=== PATIENT | male | born 1985 | race American Indian/Alaskan Native ===

== ENCOUNTER 2019-02-23 13:59 | Inpatient (IN) | payer OTHER ==
[2019-02-23] MEDS ORDERED: NACL 0.9% 500 ML 500 ML IV ONE (14:17)
[2019-02-23 15:17] LABS: Hematocrit 48.6 % (35.5-45.6); Hemoglobin 15.9 gm/dl (11.8-15.2); Mean Corpuscular HGB Conc 33 % (32-34); Mean Corpuscular Volume 85 fl (84-94); Platelet Count 193 K/mm3 (140-440); Red Blood Count 5.74 M/mm3 (3.65-5.03)
[2019-02-23 15:18] LABS: INR 0.98 (0.87-1.13)
--- NOTE | 2019-02-23 15:23 | XRay Report ---
CHEST 1 VIEW INDICATION / CLINICAL INFORMATION: possible Sepsis. COMPARISON: None available. FINDINGS: SUPPORT DEVICES: None. HEART / MEDIASTINUM: No significant abnormality. LUNGS / PLEURA: No significant pulmonary or pleural abnormality. No pneumothorax. ADDITIONAL FINDINGS: No significant additional findings. IMPRESSION: No acute pulmonary or pleural abnormality Signer Name: Prabhakar Carlin MD FACR Signed: 02/23/2019 3:18 PM Workstation Name: [id number]
[2019-02-23] MEDS ORDERED: ZOFRAN IV ONE (15:36)
[2019-02-23] MEDS ORDERED: NACL 0.9% 1000 ML 1,000 ML IV ONE ×4 (15:36→21:52)
--- NOTE | 2019-02-23 15:37 | Emergency Department Report ---
ED Abdominal Pain HPI - General Chief Complaint: Abdominal Pain Stated Complaint: POSS STOMACH VIRUS X 4DAYS Time Seen by Provider: 02/23/19 15:21 Source: patient Mode of arrival: Ambulatory Limitations: No Limitations - History of Present Illness Initial Comments: 33-year-old -[place] male patient with history of HIV presents today with complaints of abdominal pain and diarrhea 4 days. He denies any upper respiratory symptoms including cough, congestion, shortness of breath, or chest pain. He denies any fever. Patient states he is having greater than 10 watery bowel movements a day. Denies any hematochezia, black tarry stools, or urinary symptoms. Patient states symptoms began after taking first dose of his new antivirals for his HIV-Biktarvy. He states he has not taking any further antiviral since then. He reports one episode of vomiting food contents. Pain is generalized and worse with bowel movements. She denies any previous history of abdominal surgeries, heavy alcohol drinking, or chronic GI issues. Patient states his previous infectious disease doctor was in [place] and patient is unaware of his current CD4 count or viral load. -: Sudden Location: diffuse Radiation: none Migration to: no migration Severity: severe Severity scale (0 -10): 8 Quality: cramping, aching Consistency: constant Improves With: nothing Worsens With: bowel movement Context: sick contacts (roommate with similar less severe symptoms, now resolved) Associated Symptoms: nausea, vomiting, diarrhea, chills. denies: fever, dysuria, hematemesis, hematochezia, hematuria, syncope - Related Data Home Medications Medication Instructions Recorded Confirmed Last Taken Bictegrav/Emtricit/Tenofov Ala 1 each PO QDAY 02/23/19 02/23/19 02/19/19 [Biktarvy 50-200-25 mg (Nf)] Allergies Allergy/AdvReac Type Severity Reaction Status Date / Time No Known Allergies Allergy Unverified 02/23/19 14:01 ED Review of Systems ROS: Stated complaint: POSS STOMACH VIRUS X 4DAYS Other details as noted in HPI Comment: All other systems reviewed and negative Constitutional: see HPI, malaise. denies: diaphoresis, fever, weakness Respiratory: denies: cough, shortness of breath, wheezing Cardiovascular: denies: chest pain, palpitations, dyspnea on exertion, syncope Gastrointestinal: abdominal pain, nausea, vomiting, diarrhea. denies: hematemesis, melena Neurological: denies: headache, weakness, paresthesias Hematological/Lymphatic: denies: easy bleeding ED Past Medical Hx - Past Medical History Previous Medical History?: Yes Hx HIV: Yes - Surgical History Past Surgical History?: No - Social History Smoking Status: Current Every Day Smoker Substance Use Type: Marijuana - Medications Home Medications: Home Medications Medication Instructions Recorded Confirmed Last Taken Type Bictegrav/Emtricit/Tenofov Ala 1 each PO QDAY 02/23/19 02/23/19 02/19/19 History [Biktarvy 50-200-25 mg (Nf)] ED Physical Exam - General Limitations: No Limitations General appearance: alert, in no apparent distress - Head Head exam: Present: atraumatic - Eye Eye exam: Present: normal appearance - ENT ENT exam: Present: mucous membranes moist - Neck Neck exam: Present: normal inspection - Respiratory Respiratory exam: Present: normal lung sounds bilaterally. Absent: respiratory distress - Cardiovascular Cardiovascular Exam: Present: normal rhythm, tachycardia, normal heart sounds - GI/Abdominal GI/Abdominal exam: Present: soft, tenderness (generalized, worse in LLQ ), normal bowel sounds. Absent: distended, mass - Extremities Exam Extremities exam: Present: normal inspection - Neurological Exam Neurological exam: Present: alert, oriented X3 - Psychiatric Psychiatric exam: Present: normal affect, normal mood - Skin Skin exam: Present: warm, dry, intact, normal color. Absent: rash ED Course Vital Signs 02/23/19 02/23/19 02/23/19 14:09 16:00 16:25 Temperature 97.5 F L Pulse Rate 138 H 118 H Respiratory 18 18 18 Rate Blood Pressure 114/77 Blood Pressure 105/63 [Left] O2 Sat by Pulse 100 97 97 Oximetry 02/23/19 02/23/19 02/23/19 17:01 17:04 17:16 Temperature 98 F Pulse Rate 119 H 112 H 121 H Respiratory 14 16 28 H Rate Blood Pressure 112/80 112/80 Blood Pressure 112/80 [Left] O2 Sat by Pulse 100 100 Oximetry 02/23/19 02/23/19 02/23/19 17:30 19:00 19:02 Temperature 99.7 F H Pulse Rate 122 H 121 H 116 H Respiratory 18 14 20 Rate Blood Pressure 112/80 112/80 Blood Pressure 107/73 [Left] O2 Sat by Pulse 67 L 100 Oximetry 02/23/19 02/23/19 02/23/19 19:16 19:30 19:46 Temperature Pulse Rate 117 H 122 H 128 H Respiratory 22 21 22 Rate Blood Pressure 107/73 107/73 119/85 Blood Pressure [Left] O2 Sat by Pulse Oximetry 02/23/19 02/23/19 02/23/19 20:00 20:16 20:30 Temperature Pulse Rate 121 H 125 H 143 H Respiratory 16 24 32 H Rate Blood Pressure 119/85 111/78 111/78 Blood Pressure [Left] O2 Sat by Pulse 100 100 Oximetry 02/23/19 02/23/19 02/23/19 20:46 21:01 21:15 Temperature Pulse Rate 130 H 121 H Respiratory 26 H 39 H Rate Blood Pressure 124/82 112/80 124/82 Blood Pressure [Left] O2 Sat by Pulse 99 100 100 Oximetry 02/23/19 02/23/19 02/23/19 21:29 21:31 21:41 Temperature 98.1 F Pulse Rate 111 H 129 H 123 H Respiratory 20 33 H 17 Rate Blood Pressure 121/79 121/79 Blood Pressure [Left] O2 Sat by Pulse 97 98 Oximetry 02/23/19 02/23/19 02/23/19 21:51 22:01 22:11 Temperature Pulse Rate 131 H 130 H 130 H Respiratory 29 H 24 24 Rate Blood Pressure 114/79 96/68 96/68 Blood Pressure [Left] O2 Sat by Pulse 100 100 100 Oximetry 02/23/19 02/23/19 02/23/19 22:21 22:30 22:41 Temperature Pulse Rate 131 H 129 H 130 H Respiratory 22 24 22 Rate Blood Pressure 96/68 94/59 94/59 Blood Pressure [Left] O2 Sat by Pulse 100 100 100 Oximetry 02/23/19 02/23/19 02/23/19 22:51 23:01 23:10 Temperature Pulse Rate 146 H Respiratory 26 H Rate Blood Pressure 94/59 94/59 94/59 Blood Pressure [Left] O2 Sat by Pulse 100 88 100 Oximetry - Reevaluation(s) Reevaluation #1: 02/23/19 15:42 Patient presents with greater than 10 watery bowel movements daily for 4 days and abdominal pain Heart rate is at 1:30suspect dehydration Sepsis protocol initiatedinitial lactic acid 4.8 Reevaluation #2: 02/23/19 17:09 CT abdomen still pending. Patient remained afebrile. Discussed patient with Dr. Murphy, infectious disease. He does not recommend antibiotics at this time. As recommend stool testing for cryptosporidium antigen and C. difficile. Dr. Murphy states he will consult on patient in the morning. ED Medical Decision Making - Lab Data Result diagrams: 02/24/19 06:42 02/25/19 05:02 Lab Results 02/23/19 02/23/19 02/23/19 Range/Units 14:24 14:24 14:24 WBC 10.6 (4.5-11.0) K/mm3 RBC 5.74 H (3.65-5.03) M/mm3 Hgb 15.9 H (11.8-15.2) gm/dl Hct 48.6 H (35.5-45.6) % MCV 85 (84-94) fl MCH 28 (28-32) pg MCHC 33 (32-34) % RDW 15.0 (13.2-15.2) % Plt Count 193 (140-440) K/mm3 Add Manual Diff Complete Total Counted 100 Seg Neuts % (Manual) 63.0 (40.0-70.0) % Band Neutrophils % 0 % Lymphocytes % (Manual) 25.0 (13.4-35.0) % Reactive Lymphs % (Man) 0 % Monocytes % (Manual) 12.0 H (0.0-7.3) % Eosinophils % (Manual) 0 (0.0-4.3) % Basophils % (Manual) 0 (0.0-1.8) % Metamyelocytes % 0 % Myelocytes % 0 % Promyelocytes % 0 % Blast Cells % 0 % Nucleated RBC % Not Reportable Seg Neutrophils # Man 6.7 (1.8-7.7) K/mm3 Band Neutrophils # 0.0 K/mm3 Lymphocytes # (Manual) 2.7 (1.2-5.4) K/mm3 Abs React Lymphs (Man) 0.0 K/mm3 Monocytes # (Manual) 1.3 H (0.0-0.8) K/mm3 Eosinophils # (Manual) 0.0 (0.0-0.4) K/mm3 Basophils # (Manual) 0.0 (0.0-0.1) K/mm3 Metamyelocytes # 0.0 K/mm3 Myelocytes # 0.0 K/mm3 Promyelocytes # 0.0 K/mm3 Blast Cells # 0.0 K/mm3 WBC Morphology Not Reportable Hypersegmented Neuts Not Reportable Hyposegmented Neuts Not Reportable Hypogranular Neuts Not Reportable Smudge Cells Not Reportable Toxic Granulation Not Reportable Toxic Vacuolation Not Reportable Dohle Bodies Not Reportable Pelger-Huet Anomaly Not Reportable Gavino Rods Not Reportable Platelet Estimate Consistent w auto Clumped Platelets Not Reportable Plt Clumps, EDTA Not Reportable Large Platelets Not Reportable Giant Platelets Not Reportable Platelet Satelliting Not Reportable Plt Morphology Comment Not Reportable RBC Morphology Not Reportable Dimorphic RBCs Not Reportable Polychromasia Not Reportable Hypochromasia Not Reportable Poikilocytosis 1+ Anisocytosis 1+ Microcytosis Not Reportable Macrocytosis Not Reportable Spherocytes Not Reportable Pappenheimer Bodies Not Reportable Sickle Cells Not Reportable Target Cells Few Tear Drop Cells Not Reportable Ovalocytes Rare Helmet Cells Not Reportable Bu[place] Bodies Not Reportable [place] Rings Not Reportable Mike Cells Not Reportable Bite Cells Not Reportable Crenated Cell Not Reportable Elliptocytes Not Reportable Acanthocytes (Spur) Not Reportable Rouleaux Not Reportable Hemoglobin C Crystals Not Reportable Schistocytes Not Reportable Malaria parasites Not Reportable Erasto Bodies Not Reportable Hem Pathologist Commnt No PT 12.7 (12.2-14.9) Sec. INR 0.98 (0.87-1.13) VBG pH (7.320-7.420) Sodium 129 L (137-145) mmol/L Potassium 4.6 (3.6-5.0) mmol/L Chloride 92.0 L (98-107) mmol/L Carbon Dioxide 20 L (22-30) mmol/L Anion Gap 22 mmol/L BUN 47 H (9-20) mg/dL Creatinine 1.7 H (0.8-1.5) mg/dL Estimated GFR 56 ml/min BUN/Creatinine Ratio 28 % Glucose 113 H (75-100) mg/dL Lactic Acid (0.7-2.0) mmol/L Calcium 8.5 (8.4-10.2) mg/dL Magnesium (1.7-2.3) mg/dL Total Bilirubin 1.00 (0.1-1.2) mg/dL AST 52 H (5-40) units/L ALT 17 (7-56) units/L Alkaline Phosphatase 42 (35-129) units/L Total Creatine Kinase (55-170) units/L Total Protein 7.5 (6.3-8.2) g/dL Albumin 3.2 L (3.9-5) g/dL Albumin/Globulin Ratio 0.7 % Lipase (13-60) units/L C. difficile Tox (PCR) (Negative) Influenza A (Rapid) (Negative) Influenza B (Rapid) (Negative) 02/23/19 02/23/19 02/23/19 Range/Units 14:24 14:24 16:16 WBC (4.5-11.0) K/mm3 RBC (3.65-5.03) M/mm3 Hgb (11.8-15.2) gm/dl Hct (35.5-45.6) % MCV (84-94) fl MCH (28-32) pg MCHC (32-34) % RDW (13.2-15.2) % Plt Count (140-440) K/mm3 Add Manual Diff Total Counted Seg Neuts % (Manual) (40.0-70.0) % Band Neutrophils % % Lymphocytes % (Manual) (13.4-35.0) % Reactive Lymphs % (Man) % Monocytes % (Manual) (0.0-7.3) % Eosinophils % (Manual) (0.0-4.3) % Basophils % (Manual) (0.0-1.8) % Metamyelocytes % % Myelocytes % % Promyelocytes % % Blast Cells % % Nucleated RBC % Seg Neutrophils # Man (1.8-7.7) K/mm3 Band Neutrophils # K/mm3 Lymphocytes # (Manual) (1.2-5.4) K/mm3 Abs React Lymphs (Man) K/mm3 Monocytes # (Manual) (0.0-0.8) K/mm3 Eosinophils # (Manual) (0.0-0.4) K/mm3 Basophils # (Manual) (0.0-0.1) K/mm3 Metamyelocytes # K/mm3 Myelocytes # K/mm3 Promyelocytes # K/mm3 Blast Cells # K/mm3 WBC Morphology Hypersegmented Neuts Hyposegmented Neuts Hypogranular Neuts Smudge Cells Toxic Granulation Toxic Vacuolation Dohle Bodies Pelger-Huet Anomaly Gavino Rods Platelet Estimate Clumped Platelets Plt Clumps, EDTA Large Platelets Giant Platelets Platelet Satelliting Plt Morphology Comment RBC Morphology Dimorphic RBCs Polychromasia Hypochromasia Poikilocytosis Anisocytosis Microcytosis Macrocytosis Spherocytes Pappenheimer Bodies Sickle Cells Target Cells Tear Drop Cells Ovalocytes Helmet Cells [place] Bodies [place] Rings Mike Cells Bite Cells Crenated Cell Elliptocytes Acanthocytes (Spur) Rouleaux Hemoglobin C Crystals Schistocytes Malaria parasites Erasto Bodies Hem Pathologist Commnt PT (12.2-14.9) Sec. INR (0.87-1.13) VBG pH 7.383 (7.320-7.420) Sodium (137-145) mmol/L Potassium (3.6-5.0) mmol/L Chloride (98-107) mmol/L Carbon Dioxide (22-30) mmol/L Anion Gap mmol/L BUN (9-20) mg/dL Creatinine (0.8-1.5) mg/dL Estimated GFR ml/min BUN/Creatinine Ratio % Glucose (75-100) mg/dL Lactic Acid 4.80 H* (0.7-2.0) mmol/L Calcium (8.4-10.2) mg/dL Magnesium (1.7-2.3) mg/dL Total Bilirubin (0.1-1.2) mg/dL AST (5-40) units/L ALT (7-56) units/L Alkaline Phosphatase (35-129) units/L Total Creatine Kinase (55-170) units/L Total Protein (6.3-8.2) g/dL Albumin (3.9-5) g/dL Albumin/Globulin Ratio % Lipase (13-60) units/L C. difficile Tox (PCR) (Negative) Influenza A (Rapid) Negative (Negative) Influenza B (Rapid) Negative (Negative) 02/23/19 02/23/19 02/23/19 Range/Units 16:21 16:21 16:34 WBC (4.5-11.0) K/mm3 RBC (3.65-5.03) M/mm3 Hgb (11.8-15.2) gm/dl Hct (35.5-45.6) % MCV (84-94) fl MCH (28-32) pg MCHC (32-34) % RDW (13.2-15.2) % Plt Count (140-440) K/mm3 Add Manual Diff Total Counted Seg Neuts % (Manual) (40.0-70.0) % Band Neutrophils % % Lymphocytes % (Manual) (13.4-35.0) % Reactive Lymphs % (Man) % Monocytes % (Manual) (0.0-7.3) % Eosinophils % (Manual) (0.0-4.3) % Basophils % (Manual) (0.0-1.8) % Metamyelocytes % % Myelocytes % % Promyelocytes % % Blast Cells % % Nucleated RBC % Seg Neutrophils # Man (1.8-7.7) K/mm3 Band Neutrophils # K/mm3 Lymphocytes # (Manual) (1.2-5.4) K/mm3 Abs React Lymphs (Man) K/mm3 Monocytes # (Manual) (0.0-0.8) K/mm3 Eosinophils # (Manual) (0.0-0.4) K/mm3 Basophils # (Manual) (0.0-0.1) K/mm3 Metamyelocytes # K/mm3 Myelocytes # K/mm3 Promyelocytes # K/mm3 Blast Cells # K/mm3 WBC Morphology Hypersegmented Neuts Hyposegmented Neuts Hypogranular Neuts Smudge Cells Toxic Granulation Toxic Vacuolation Dohle Bodies Pelger-Huet Anomaly Gavino Rods Platelet Estimate Clumped Platelets Plt Clumps, EDTA Large Platelets Giant Platelets Platelet Satelliting Plt Morphology Comment RBC Morphology Dimorphic RBCs Polychromasia Hypochromasia Poikilocytosis Anisocytosis Microcytosis Macrocytosis Spherocytes Pappenheimer Bodies Sickle Cells Target Cells Tear Drop Cells Ovalocytes Helmet Cells Bueno-[place] Bodies [place] Rings [place] Cells Bite Cells Crenated Cell Elliptocytes Acanthocytes (Spur) Rouleaux Hemoglobin C Crystals Schistocytes Malaria parasites Erasto Bodies Hem Pathologist Commnt PT (12.2-14.9) Sec. INR (0.87-1.13) VBG pH (7.320-7.420) Sodium (137-145) mmol/L Potassium (3.6-5.0) mmol/L Chloride (98-107) mmol/L Carbon Dioxide (22-30) mmol/L Anion Gap mmol/L BUN (9-20) mg/dL Creatinine (0.8-1.5) mg/dL Estimated GFR ml/min BUN/Creatinine Ratio % Glucose (75-100) mg/dL Lactic Acid 4.30 H* (0.7-2.0) mmol/L Calcium (8.4-10.2) mg/dL Magnesium 1.80 (1.7-2.3) mg/dL Total Bilirubin (0.1-1.2) mg/dL AST (5-40) units/L ALT (7-56) units/L Alkaline Phosphatase (35-129) units/L Total Creatine Kinase 191 H (55-170) units/L Total Protein (6.3-8.2) g/dL Albumin (3.9-5) g/dL Albumin/Globulin Ratio % Lipase 7 L (13-60) units/L C. difficile Tox (PCR) (Negative) Influenza A (Rapid) (Negative) Influenza B (Rapid) (Negative) 02/23/19 02/23/19 02/23/19 Range/Units 16:45 17:22 19:55 WBC (4.5-11.0) K/mm3 RBC (3.65-5.03) M/mm3 Hgb (11.8-15.2) gm/dl Hct (35.5-45.6) % MCV (84-94) fl MCH (28-32) pg MCHC (32-34) % RDW (13.2-15.2) % Plt Count (140-440) K/mm3 Add Manual Diff Total Counted Seg Neuts % (Manual) (40.0-70.0) % Band Neutrophils % % Lymphocytes % (Manual) (13.4-35.0) % Reactive Lymphs % (Man) % Monocytes % (Manual) (0.0-7.3) % Eosinophils % (Manual) (0.0-4.3) % Basophils % (Manual) (0.0-1.8) % Metamyelocytes % % Myelocytes % % Promyelocytes % % Blast Cells % % Nucleated RBC % Seg Neutrophils # Man (1.8-7.7) K/mm3 Band Neutrophils # K/mm3 Lymphocytes # (Manual) (1.2-5.4) K/mm3 Abs React Lymphs (Man) K/mm3 Monocytes # (Manual) (0.0-0.8) K/mm3 Eosinophils # (Manual) (0.0-0.4) K/mm3 Basophils # (Manual) (0.0-0.1) K/mm3 Metamyelocytes # K/mm3 Myelocytes # K/mm3 Promyelocytes # K/mm3 Blast Cells # K/mm3 WBC Morphology Hypersegmented Neuts Hyposegmented Neuts Hypogranular Neuts Smudge Cells Toxic Granulation Toxic Vacuolation Dohle Bodies Pelger-Huet Anomaly Gavino Rods Platelet Estimate Clumped Platelets Plt Clumps, EDTA Large Platelets Giant Platelets Platelet Satelliting Plt Morphology Comment RBC Morphology Dimorphic RBCs Polychromasia Hypochromasia Poikilocytosis Anisocytosis Microcytosis Macrocytosis Spherocytes Pappenheimer Bodies Sickle Cells Target Cells Tear Drop Cells Ovalocytes Helmet Cells Bueno-[place] Bodies [place] Rings Mike Cells Bite Cells Crenated Cell Elliptocytes Acanthocytes (Spur) Rouleaux Hemoglobin C Crystals Schistocytes Malaria parasites Erasto Bodies Hem Pathologist Commnt PT (12.2-14.9) Sec. INR (0.87-1.13) VBG pH (7.320-7.420) Sodium (137-145) mmol/L Potassium (3.6-5.0) mmol/L Chloride (98-107) mmol/L Carbon Dioxide (22-30) mmol/L Anion Gap mmol/L BUN (9-20) mg/dL Creatinine (0.8-1.5) mg/dL Estimated GFR ml/min BUN/Creatinine Ratio % Glucose (75-100) mg/dL Lactic Acid 4.60 H* 3.90 H* (0.7-2.0) mmol/L Calcium (8.4-10.2) mg/dL Magnesium (1.7-2.3) mg/dL Total Bilirubin (0.1-1.2) mg/dL AST (5-40) units/L ALT (7-56) units/L Alkaline Phosphatase (35-129) units/L Total Creatine Kinase (55-170) units/L Total Protein (6.3-8.2) g/dL Albumin (3.9-5) g/dL Albumin/Globulin Ratio % Lipase (13-60) units/L C. difficile Tox (PCR) Negative (Negative) Influenza A (Rapid) (Negative) Influenza B (Rapid) (Negative) 02/23/19 02/23/19 Range/Units 19:55 20:35 WBC (4.5-11.0) K/mm3 RBC (3.65-5.03) M/mm3 Hgb (11.8-15.2) gm/dl Hct (35.5-45.6) % MCV (84-94) fl MCH (28-32) pg MCHC (32-34) % RDW (13.2-15.2) % Plt Count (140-440) K/mm3 Add Manual Diff Total Counted Seg Neuts % (Manual) (40.0-70.0) % Band Neutrophils % % Lymphocytes % (Manual) (13.4-35.0) % Reactive Lymphs % (Man) % Monocytes % (Manual) (0.0-7.3) % Eosinophils % (Manual) (0.0-4.3) % Basophils % (Manual) (0.0-1.8) % Metamyelocytes % % Myelocytes % % Promyelocytes % % Blast Cells % % Nucleated RBC % Seg Neutrophils # Man (1.8-7.7) K/mm3 Band Neutrophils # K/mm3 Lymphocytes # (Manual) (1.2-5.4) K/mm3 Abs React Lymphs (Man) K/mm3 Monocytes # (Manual) (0.0-0.8) K/mm3 Eosinophils # (Manual) (0.0-0.4) K/mm3 Basophils # (Manual) (0.0-0.1) K/mm3 Metamyelocytes # K/mm3 Myelocytes # K/mm3 Promyelocytes # K/mm3 Blast Cells # K/mm3 WBC Morphology Hypersegmented Neuts Hyposegmented Neuts Hypogranular Neuts Smudge Cells Toxic Granulation Toxic Vacuolation Dohle Bodies Pelger-Huet Anomaly Gavino Rods Platelet Estimate Clumped Platelets Plt Clumps, EDTA Large Platelets Giant Platelets Platelet Satelliting Plt Morphology Comment RBC Morphology Dimorphic RBCs Polychromasia Hypochromasia Poikilocytosis Anisocytosis Microcytosis Macrocytosis Spherocytes Pappenheimer Bodies Sickle Cells Target Cells Tear Drop Cells Ovalocytes Helmet Cells Bu[place] Bodies [place] Rings [place] Cells Bite Cells Crenated Cell Elliptocytes Acanthocytes (Spur) Rouleaux Hemoglobin C Crystals Schistocytes Malaria parasites Erasto Bodies Hem Pathologist Commnt PT (12.2-14.9) Sec. INR (0.87-1.13) VBG pH (7.320-7.420) Sodium (137-145) mmol/L Potassium (3.6-5.0) mmol/L Chloride (98-107) mmol/L Carbon Dioxide (22-30) mmol/L Anion Gap mmol/L BUN (9-20) mg/dL Creatinine (0.8-1.5) mg/dL Estimated GFR ml/min BUN/Creatinine Ratio % Glucose (75-100) mg/dL Lactic Acid 4.00 H* 4.20 H* (0.7-2.0) mmol/L Calcium (8.4-10.2) mg/dL Magnesium (1.7-2.3) mg/dL Total Bilirubin (0.1-1.2) mg/dL AST (5-40) units/L ALT (7-56) units/L Alkaline Phosphatase (35-129) units/L Total Creatine Kinase (55-170) units/L Total Protein (6.3-8.2) g/dL Albumin (3.9-5) g/dL Albumin/Globulin Ratio % Lipase (13-60) units/L C. difficile Tox (PCR) (Negative) Influenza A (Rapid) (Negative) Influenza B (Rapid) (Negative) - EKG Data EKG shows normal: sinus rhythm Rate: tachycardia - Radiology Data Radiology results: report reviewed Chest x-ray shows no acute findings. . . . . CT ABDOMEN AND PELVIS WITHOUT CONTRAST INDICATION / CLINICAL INFORMATION: abdominal pain, worse in LLQ,diarrhea, HIV. TECHNIQUE: Axial CT images were obtained through the abdomen and pelvis without IV contrast. All CT scans at this location are performed using CT dose reduction for ALARA by means of automated exposure control. COMPARISON: None available. FINDINGS: Lack of oral and IV contrast limits diagnostic accuracy in patient with minimum intra-abdominal fat LOWER CHEST: No significant abnormality. LIVER: No significant abnormality. GALLBLADDER: No significant abnormality. BILE DUCTS: No significant abnormality. PANCREAS: No significant abnormality. SPLEEN: No significant abnormality. ADRENALS: No significant abnormality. RIGHT KIDNEY and URETER: No significant abnormality. LEFT KIDNEY and URETER: Several punctate calcifications are present left kidney STOMACH and SMALL BOWEL: No significant abnormality. COLON: No significant abnormality. APPENDIX: No significant abnormality. PERITONEUM: No free fluid. No free air. No fluid collection. LYMPH NODES: No significant adenopathy. AORTA and ARTERIES: No significant abnormality. IVC and VEINS: No significant abnormality. URINARY BLADDER: No significant abnormality. REPRODUCTIVE ORGANS: No significant abnormality. ADDITIONAL FINDINGS: None. SKELETAL SYSTEM: No significant abnormality. IMPRESSION: 1. Left nephrolithiasis - Medical Decision Making 33-year-old male patient with history of HIV. Her with watery diarrhea abdominal pain. Positive sepsis. Normal. Discussed patient with Dr. Murphy, [place] disease-no antibiotics recommended at this time. Elevated creatinine at 1.7 noted on GFR 56. Pt to be admitted for further evaluation pending CT of abdomen. Critical care attestation.: If time is entered above; I have spent that time in minutes in the direct care of this critically ill patient, excluding procedure time. ED Disposition Clinical Impression: Abdominal pain, vomiting, and diarrhea Sepsis Qualifiers: Sepsis type: sepsis due to unspecified organism Sepsis acute organ dysfunction status: unspecified Qualified Code(s): A41.9 - Sepsis, unspecified organism Disposition: OP ADMIT IP TO THIS HOSP Is pt being admited?: Yes Condition: Fair
[2019-02-23 16:16] LABS: Basophils % (Manual) 0 % (0.0-1.8); Eosinophils % (Manual) 0 % (0.0-4.3); Total Cells Counted 100
[2019-02-23 16:17] LABS: Platelet Estimate Consistent w Auto
[2019-02-23 16:18] LABS: Anisocytosis 1+; Ovalocytes Rare; Poikilocytosis 1+; Target Cells Few
--- NOTE | 2019-02-23 16:23 | Event Note ---
Date of service: 02/23/19 Face to Face: This is a 33-year-old gentleman, not known to this provider previously, recently moved here from [place], prior to that was in [place]. Recently started new antiviral medication; [place] Does not know CD4 count, he does not know viral load. Presents with 4-5 days of diffuse abdominal pain, and profuse diarrhea. He is found to be tachycardic with a lactic acidosis. Screening laboratory studies ordered, CT scan abdomen pelvis ordered, requested consultation with infectious disease for further recommendations. Uncertain if this is a medication side effect, or related to patient's underlying HIV status. The patient does not know if he's ever had in age defining illness or opportunistic infection. He made no comment about recent antibiotic use to this provider. Anticipate admission for lactic acidosis and tachycardia. Vital Signs 02/23/19 02/23/19 14:09 16:00 Temperature 97.5 F L Pulse Rate 138 H Respiratory 18 18 Rate Blood Pressure 114/77 O2 Sat by Pulse 100 97 Oximetry Lab Results 02/23/19 02/23/19 02/23/19 Range/Units 14:24 14:24 14:24 WBC 10.6 (4.5-11.0) K/mm3 RBC 5.74 H (3.65-5.03) M/mm3 Hgb 15.9 H (11.8-15.2) gm/dl Hct 48.6 H (35.5-45.6) % MCV 85 (84-94) fl MCH 28 (28-32) pg MCHC 33 (32-34) % RDW 15.0 (13.2-15.2) % Plt Count 193 (140-440) K/mm3 Add Manual Diff Complete Total Counted 100 Seg Neuts % (Manual) 63.0 (40.0-70.0) % Band Neutrophils % 0 % Lymphocytes % (Manual) 25.0 (13.4-35.0) % Reactive Lymphs % (Man) 0 % Monocytes % (Manual) 12.0 H (0.0-7.3) % Eosinophils % (Manual) 0 (0.0-4.3) % Basophils % (Manual) 0 (0.0-1.8) % Metamyelocytes % 0 % Myelocytes % 0 % Promyelocytes % 0 % Blast Cells % 0 % Nucleated RBC % Not Reportable Seg Neutrophils # Man 6.7 (1.8-7.7) K/mm3 Band Neutrophils # 0.0 K/mm3 Lymphocytes # (Manual) 2.7 (1.2-5.4) K/mm3 Abs React Lymphs (Man) 0.0 K/mm3 Monocytes # (Manual) 1.3 H (0.0-0.8) K/mm3 Eosinophils # (Manual) 0.0 (0.0-0.4) K/mm3 Basophils # (Manual) 0.0 (0.0-0.1) K/mm3 Metamyelocytes # 0.0 K/mm3 Myelocytes # 0.0 K/mm3 Promyelocytes # 0.0 K/mm3 Blast Cells # 0.0 K/mm3 WBC Morphology Not Reportable Hypersegmented Neuts Not Reportable Hyposegmented Neuts Not Reportable Hypogranular Neuts Not Reportable Smudge Cells Not Reportable Toxic Granulation Not Reportable Toxic Vacuolation Not Reportable Dohle Bodies Not Reportable Pelger-Huet Anomaly Not Reportable Gavino Rods Not Reportable Platelet Estimate Consistent w auto Clumped Platelets Not Reportable Plt Clumps, EDTA Not Reportable Large Platelets Not Reportable Giant Platelets Not Reportable Platelet Satelliting Not Reportable Plt Morphology Comment Not Reportable RBC Morphology Not Reportable Dimorphic RBCs Not Reportable Polychromasia Not Reportable Hypochromasia Not Reportable Poikilocytosis 1+ Anisocytosis 1+ Microcytosis Not Reportable Macrocytosis Not Reportable Spherocytes Not Reportable Pappenheimer Bodies Not Reportable Sickle Cells Not Reportable Target Cells Few Tear Drop Cells Not Reportable Ovalocytes Rare Helmet Cells Not Reportable Bu[place] Bodies Not Reportable [place] Rings Not Reportable Clark Cells Not Reportable Bite Cells Not Reportable Crenated Cell Not Reportable Elliptocytes Not Reportable Acanthocytes (Spur) Not Reportable Rouleaux Not Reportable Hemoglobin C Crystals Not Reportable Schistocytes Not Reportable Malaria parasites Not Reportable Erasto Bodies Not Reportable Hem Pathologist Commnt No PT 12.7 (12.2-14.9) Sec. INR 0.98 (0.87-1.13) VBG pH (7.320-7.420) Lactic Acid 4.80 H* (0.7-2.0) mmol/L Influenza A (Rapid) (Negative) Influenza B (Rapid) (Negative) 02/23/19 02/23/19 Range/Units 14:24 16:16 WBC (4.5-11.0) K/mm3 RBC (3.65-5.03) M/mm3 Hgb (11.8-15.2) gm/dl Hct (35.5-45.6) % MCV (84-94) fl MCH (28-32) pg MCHC (32-34) % RDW (13.2-15.2) % Plt Count (140-440) K/mm3 Add Manual Diff Total Counted Seg Neuts % (Manual) (40.0-70.0) % Band Neutrophils % % Lymphocytes % (Manual) (13.4-35.0) % Reactive Lymphs % (Man) % Monocytes % (Manual) (0.0-7.3) % Eosinophils % (Manual) (0.0-4.3) % Basophils % (Manual) (0.0-1.8) % Metamyelocytes % % Myelocytes % % Promyelocytes % % Blast Cells % % Nucleated RBC % Seg Neutrophils # Man (1.8-7.7) K/mm3 Band Neutrophils # K/mm3 Lymphocytes # (Manual) (1.2-5.4) K/mm3 Abs React Lymphs (Man) K/mm3 Monocytes # (Manual) (0.0-0.8) K/mm3 Eosinophils # (Manual) (0.0-0.4) K/mm3 Basophils # (Manual) (0.0-0.1) K/mm3 Metamyelocytes # K/mm3 Myelocytes # K/mm3 Promyelocytes # K/mm3 Blast Cells # K/mm3 WBC Morphology Hypersegmented Neuts Hyposegmented Neuts Hypogranular Neuts Smudge Cells Toxic Granulation Toxic Vacuolation Dohle Bodies Pelger-Huet Anomaly Gavino Rods Platelet Estimate Clumped Platelets Plt Clumps, EDTA Large Platelets Giant Platelets Platelet Satelliting Plt Morphology Comment RBC Morphology Dimorphic RBCs Polychromasia Hypochromasia Poikilocytosis Anisocytosis Microcytosis Macrocytosis Spherocytes Pappenheimer Bodies Sickle Cells Target Cells Tear Drop Cells Ovalocytes Helmet Cells Bu[place] Bodies [place] Rings Clark Cells Bite Cells Crenated Cell Elliptocytes Acanthocytes (Spur) Rouleaux Hemoglobin C Crystals Schistocytes Malaria parasites Erasto Bodies Hem Pathologist Commnt PT (12.2-14.9) Sec. INR (0.87-1.13) VBG pH 7.383 (7.320-7.420) Lactic Acid (0.7-2.0) mmol/L Influenza A (Rapid) Negative (Negative) Influenza B (Rapid) Negative (Negative)
[2019-02-23 17:10] LABS: Albumin 3.2 g/dL (3.9-5); Calcium 8.5 mg/dL (8.4-10.2)
[2019-02-23] MEDS ORDERED: MORPHINE IV ONE ×2 (17:40→21:07)
--- NOTE | 2019-02-23 18:30 | Cat Scan Report ---
CT ABDOMEN AND PELVIS WITHOUT CONTRAST INDICATION / CLINICAL INFORMATION: abdominal pain, worse in LLQ,diarrhea, HIV. TECHNIQUE: Axial CT images were obtained through the abdomen and pelvis without IV contrast. All CT scans at [facility] location are performed using CT dose reduction for ALARA by means of automated exposure control. COMPARISON: None available. FINDINGS: Lack of oral and IV contrast limits diagnostic accuracy in patient with minimum intra-abdominal fat LOWER CHEST: No significant abnormality. LIVER: No significant abnormality. GALLBLADDER: No significant abnormality. BILE DUCTS: No significant abnormality. PANCREAS: No significant abnormality. SPLEEN: No significant abnormality. ADRENALS: No significant abnormality. RIGHT KIDNEY and URETER: No significant abnormality. LEFT KIDNEY and URETER: Several punctate calcifications are present left kidney STOMACH and SMALL BOWEL: No significant abnormality. COLON: No significant abnormality. APPENDIX: No significant abnormality. PERITONEUM: No free fluid. No free air. No fluid collection. LYMPH NODES: No significant adenopathy. AORTA and ARTERIES: No significant abnormality. IVC and VEINS: No significant abnormality. URINARY BLADDER: No significant abnormality. REPRODUCTIVE ORGANS: No significant abnormality. ADDITIONAL FINDINGS: None. SKELETAL SYSTEM: No significant abnormality. IMPRESSION: 1. Left nephrolithiasis Signer Name: Chava Hudson MD Signed: 02/23/2019 6:25 PM Workstation Name: [employer]
[2019-02-23] MEDS ORDERED: SODIUM CHLORIDE FLUSH SYRINGE 10 ML IV PRN ×2 (20:54→21:51)
[2019-02-23] MEDS ORDERED: ZOFRAN IV PRN ×2 (20:54→21:51)
[2019-02-23] MEDS ORDERED: TYLENOL PO PRN ×2 (20:54→21:51)
[2019-02-23 21:21] LABS: Bilirubin,Urine NEG (Negative); Blood,Urine MOD (Negative); Color,Urine Yellow (Yellow); Urobilinogen,Urine < 2.0 mg/dL (<2.0)
[2019-02-23] MEDS ORDERED: NACL 0.9% 1000 ML 1,000 ML ONE ×2 (21:34→22:54)
[2019-02-23] MEDS ORDERED: MORPHINE IV PRN (21:51)
--- NOTE | 2019-02-23 22:20 | History and Physical Report ---
History of Present Illness Date of examination: 02/23/19 Date of admission: 02/23/19 20:54 History of present illness: 33-year-old man with a history of HIV, unknown CD4 count for comes comes to the emergency room with complaints of abdominal pain and diarrhea 4 days. Patient stated he was on HAART but discontinue for 7 months because he was going through a period of depression, he recently started on new medication 1-2 weeks ago, he cannot recall the name. His abdominal pain is all over his abdomen described as sharp, intermittent, only when he has diarrhea. Has 12-13 episodes of nonbloody diarrhea today, no recent antibiotic, no fever or chills. Admits to decreased oral intake, generalized weakness, one episode of vomiting eview Of Systems: Constitutional: no weight loss, fever, chills Ears, eyes, nose, mouth and throat: no nasal congestion, no nasal discharge, no sinus pressure, blurry vision, diplopia Neck: No neck pain or rigidity. Cardiovascular: No palpitations, chest pain Respiratory: No shortness of breath, cough Gastrointestinal: No hematochezia Genitourinary : no dysuria, frequency , hematuria Musculoskeletal: no muscle ache , joint pain Integumentary: no rash, no pruritis Neurological: no parathesias, focal weakness Endocrine: no cold or heat intolerance, no polyuria or polydipsia Hematologic/Lymphatic: no easy bruising, no easy bleeding, no gland swelling Allergic/Immunologic: no urticaria, no angioedema. PAST MEDICAL HISTORY:HIV PAST SURGICAL HISTORY:none FAMILY HISTORY:hypertension, diabetes SOCIAL HISTORY: , marijuana, +alcohol Medications and Allergies Allergies Allergy/AdvReac Type Severity Reaction Status Date / Time No Known Allergies Allergy Unverified 02/23/19 14:01 Home Medications Medication Instructions Recorded Confirmed Last Taken Type Bictegrav/Emtricit/Tenofov Ala 1 each PO QDAY 02/23/19 02/23/19 02/19/19 History [Biktarvy 50-200-25 mg (Nf)] Active Meds: Active Medications Acetaminophen (Tylenol) 650 mg PO Q4H PRN PRN Reason: Pain MILD(1-3)/Fever >100.5/GOMEZ Acetaminophen (Tylenol) 650 mg PO Q4H PRN PRN Reason: Pain MILD(1-3)/Fever >100.5/GOMEZ Enoxaparin Sodium (Lovenox) 30 mg SUB-Q QDAY BETH Sodium Chloride (Nacl 0.9% 1000 Ml) 1,000 mls @ 999 mls/hr IV BOLUS ONE Stop: 02/23/19 22:31 Last Admin: 02/23/19 21:38 Dose: 999 mls/hr Documented by: Sodium Chloride (Nacl 0.9% 1000 Ml) 1,000 mls @ 150 mls/hr IV DIRECT BETH Sodium Chloride (Nacl 0.9% 1000 Ml) 1,000 mls @ 999 mls/hr IV ONCE ONE Stop: 02/23/19 22:52 Miscellaneous Medication (Bictegrav/Emtricit/Tenofov Ala) 1 each PO QDAY BETH Morphine Sulfate (Morphine) 2 mg IV Q4H PRN PRN Reason: Pain, Moderate (4-6) Ondansetron HCl (Zofran) 4 mg IV Q8H PRN PRN Reason: Nausea And Vomiting Ondansetron HCl (Zofran) 4 mg IV Q4H PRN PRN Reason: Nausea And Vomiting Sodium Chloride (Sodium Chloride Flush Syringe 10 Ml) 10 ml IV BID BETH Sodium Chloride (Sodium Chloride Flush Syringe 10 Ml) 10 ml IV PRN PRN PRN Reason: LINE FLUSH Sodium Chloride (Sodium Chloride Flush Syringe 10 Ml) 10 ml IV BID BETH Sodium Chloride (Sodium Chloride Flush Syringe 10 Ml) 10 ml IV PRN PRN PRN Reason: LINE FLUSH Exam - Physical Exam Narrative exam: General Apperance: The patient sitting in bed no acute distress HEENT: Normocephalic, atraumatic. Pupils equally round and reactive to light, extraocular movement intact, and no sclericterus or JVD or thyromegaly or nodule. Neck supple, no carotid bruit, mucous membranes dry, no exudate or erythema Heart: S1-S2, regular is rhythm Lungs: Clear to auscultation bilaterally, breathing comfortable Abdomen: Positive bowel sounds, soft, nontender, nondistended, no organomegaly Extremities: No edema cyanosis clubbing Skin: no rash, nodule, warm and dry Neuro:CN 2 -12 intact, motor/sensory intact, speech is fluent - Constitutional Vitals: Temp Pulse Resp BP Pulse Ox 98.1 F 111 H 20 124/82 100 02/23/19 21:29 02/23/19 21:29 02/23/19 21:29 02/23/19 21:15 02/23/19 21:15 Results - Labs CBC & Chem 7: 02/24/19 06:42 02/24/19 06:42 Labs: Abnormal lab results 02/23/19 02/23/19 02/23/19 Range/Units 14:24 14:24 14:24 RBC 5.74 H (3.65-5.03) M/mm3 Hgb 15.9 H (11.8-15.2) gm/dl Hct 48.6 H (35.5-45.6) % Monocytes % (Manual) 12.0 H (0.0-7.3) % Monocytes # (Manual) 1.3 H (0.0-0.8) K/mm3 Sodium 129 L (137-145) mmol/L Chloride 92.0 L (98-107) mmol/L Carbon Dioxide 20 L (22-30) mmol/L BUN 47 H (9-20) mg/dL Creatinine 1.7 H (0.8-1.5) mg/dL Glucose 113 H (75-100) mg/dL Lactic Acid 4.80 H* (0.7-2.0) mmol/L AST 52 H (5-40) units/L Total Creatine Kinase (55-170) units/L Albumin 3.2 L (3.9-5) g/dL Lipase (13-60) units/L Urine WBC (Auto) (0.0-6.0) /HPF 02/23/19 02/23/19 02/23/19 Range/Units 16:21 16:21 16:34 RBC (3.65-5.03) M/mm3 Hgb (11.8-15.2) gm/dl Hct (35.5-45.6) % Monocytes % (Manual) (0.0-7.3) % Monocytes # (Manual) (0.0-0.8) K/mm3 Sodium (137-145) mmol/L Chloride (98-107) mmol/L Carbon Dioxide (22-30) mmol/L BUN (9-20) mg/dL Creatinine (0.8-1.5) mg/dL Glucose (75-100) mg/dL Lactic Acid 4.30 H* (0.7-2.0) mmol/L AST (5-40) units/L Total Creatine Kinase 191 H (55-170) units/L Albumin (3.9-5) g/dL Lipase 7 L (13-60) units/L Urine WBC (Auto) (0.0-6.0) /HPF 02/23/19 02/23/19 02/23/19 Range/Units 17:22 19:55 19:55 RBC (3.65-5.03) M/mm3 Hgb (11.8-15.2) gm/dl Hct (35.5-45.6) % Monocytes % (Manual) (0.0-7.3) % Monocytes # (Manual) (0.0-0.8) K/mm3 Sodium (137-145) mmol/L Chloride (98-107) mmol/L Carbon Dioxide (22-30) mmol/L BUN (9-20) mg/dL Creatinine (0.8-1.5) mg/dL Glucose (75-100) mg/dL Lactic Acid 4.60 H* 3.90 H* 4.00 H* (0.7-2.0) mmol/L AST (5-40) units/L Total Creatine Kinase (55-170) units/L Albumin (3.9-5) g/dL Lipase (13-60) units/L Urine WBC (Auto) (0.0-6.0) /HPF 02/23/19 02/23/19 Range/Units 20:35 Unknown RBC (3.65-5.03) M/mm3 Hgb (11.8-15.2) gm/dl Hct (35.5-45.6) % Monocytes % (Manual) (0.0-7.3) % Monocytes # (Manual) (0.0-0.8) K/mm3 Sodium (137-145) mmol/L Chloride (98-107) mmol/L Carbon Dioxide (22-30) mmol/L BUN (9-20) mg/dL Creatinine (0.8-1.5) mg/dL Glucose (75-100) mg/dL Lactic Acid 4.20 H* (0.7-2.0) mmol/L AST (5-40) units/L Total Creatine Kinase (55-170) units/L Albumin (3.9-5) g/dL Lipase (13-60) units/L Urine WBC (Auto) 10.0 H (0.0-6.0) /HPF - Imaging and Cardiology EKG: image reviewed Chest x-ray: report reviewed Assessment and Plan Assessment Renal failure, acute Gastroenteritis, viral vs HIV related Urinary Tract infection HIV Plan Admit to medicine Start IV fluids, follow stool cultures, check C. difficile Consult ID, the Levaquin, DVT prophylaxis
[2019-02-23] MEDS ORDERED: LEVAQUIN 750MG/150ML 750 MG/150 ML BAG IV SCH (23:00)
[2019-02-23] MEDS: SODIUM CHLORIDE FLUSH SYRINGE 10 ML IV SCH ×2 (23:03→23:04)
[2019-02-24] MEDS: NACL 0.9% 1000 ML 1,000 ML IV SCH ×2 (00:30→13:46)
[2019-02-24 07:10] LABS: Hematocrit 38.3 % (35.5-45.6); Hemoglobin 12.7 gm/dl (11.8-15.2); Mean Corpuscular HGB Conc 33 % (32-34); Mean Corpuscular Volume 83 fl (84-94); Red Cell Distribution Width 14.7 % (13.2-15.2)
[2019-02-24 07:36] LABS: BUN/Creatinine Ratio 18; Blood Urea Nitrogen 21 mg/dL (9-20); Calcium 7.9 mg/dL (8.4-10.2); Hemolysis Index 28
[2019-02-24] MEDS ORDERED: ENOXAPARIN SUB-Q SCH (10:00)
[2019-02-24 10:13] LABS: Band Neutrophils # (Manual) 0.1 K/mm3; Basophils % (Manual) 0 % (0.0-1.8); Total Cells Counted 100
[2019-02-24 10:15] LABS: Anisocytosis Few; Ovalocytes Rare; Platelet Estimate Consistent w Auto; Poikilocytosis Few; Target Cells Rare
[2019-02-24 10:17] LABS: Platelet Count 165 K/mm3 (140-440)
[2019-02-24 10:29] LABS: Dohle Bodies 2+
[2019-02-24] MEDS: SODIUM CHLORIDE FLUSH SYRINGE 10 ML IV SCH (10:49)
--- NOTE | 2019-02-24 11:25 | Consultation ---
History of Present Illness - Reason for Consult Consult date: 02/24/19 acute renal failure - History of Present Illness This is 33 year old male presented to the hospital for a chief complaint of having diarrhea for several days. Patient sates his diarrhea began after start taking Biktarvy for his HIV. On admission, patient's serum creatinine was noted to be elevated at 1.7. Baseline serum creatinine unknown. We are being consulted for management of this patient's Acute Renal Failure. Past History Past Medical History: HIV/AIDS Past Surgical History: No surgical history Social history: other (HIV) Family history: no significant family history Medications and Allergies Allergies Allergy/AdvReac Type Severity Reaction Status Date / Time No Known Allergies Allergy Unverified 02/23/19 14:01 Home Medications Medication Instructions Recorded Confirmed Last Taken Type Bictegrav/Emtricit/Tenofov Ala 1 each PO QDAY 02/23/19 02/23/19 02/19/19 History [Biktarvy 50-200-25 mg (Nf)] Active Meds: Active Medications Acetaminophen (Tylenol) 650 mg PO Q4H PRN PRN Reason: Pain MILD(1-3)/Fever >100.5/GOMEZ Enoxaparin Sodium (Lovenox) 40 mg SUB-Q QDAY@1000 BETH Sodium Chloride (Nacl 0.9% 1000 Ml) 1,000 mls @ 150 mls/hr IV DIRECT BETH Last Admin: 02/24/19 00:30 Dose: 150 mls/hr Documented by: Levofloxacin/Dextrose (Levaquin 750mg/150ml) 750 mg in 150 mls @ 100 mls/hr IV Q24H BETH; Protocol Miscellaneous Medication (Bictegrav/Emtricit/Tenofov Ala) 1 each PO QDAY BETH Morphine Sulfate (Morphine) 2 mg IV Q4H PRN PRN Reason: Pain, Moderate (4-6) Last Admin: 02/24/19 00:30 Dose: 2 mg Documented by: Ondansetron HCl (Zofran) 4 mg IV Q4H PRN PRN Reason: Nausea And Vomiting Sodium Chloride (Sodium Chloride Flush Syringe 10 Ml) 10 ml IV BID BETH Last Admin: 02/23/19 23:04 Dose: 10 ml Documented by: Sodium Chloride (Sodium Chloride Flush Syringe 10 Ml) 10 ml IV PRN PRN PRN Reason: LINE FLUSH Last Admin: 02/24/19 00:50 Dose: 10 ml Documented by: Review of Systems Constitutional: fatigue, no fever, no chills, no sweats Ears, nose, mouth and throat: no ear pain, no ear discharge, no tinnitis, no decreased hearing, no nose pain, no nasal congestion Cardiovascular: no chest pain, no orthopnea, no palpitations, no rapid/irregular heart beat, no edema, no syncope Respiratory: no cough with sputum, no excessive sputum, no hemoptysis, no dyspnea on exertion Gastrointestinal: diarrhea, no abdominal pain Genitourinary Male: no hematuria, no flank pain, no discharge, no urinary frequency, no urinary hesitancy, no nocturia Rectal: no pain, no incontinence, no bleeding Musculoskeletal: no neck stiffness, no neck pain, no shooting arm pain, no arm numbness/tingling, no low back pain, no shooting leg pain Integumentary: no rash, no pruritis, no redness, no sores, no wounds, no jaundice Neurological: no head injury, no transient paralysis, no paralysis, no weakness, no parathesias, no numbness, no tingling, no seizures Psychiatric: no anxiety, no memory loss, no change in sleep habits, no sleep disturbances, no insomnia, no hypersomnia, no change in appetite, no change in libido Endocrine: no cold intolerance, no heat intolerance, no polyphagia, no excessive thirst, no polydipsia, no polyuria Exam - Vital Signs Vital signs: Vital Signs Temp Pulse Resp BP Pulse Ox 97.5 F L 138 H 18 114/77 100 02/23/19 14:09 02/23/19 14:09 02/23/19 14:09 02/23/19 14:09 02/23/19 14:09 - General Appearance General appearance: well-developed, appears stated age, fatigue EENT: ATNC, PERRL, hearing intact, vision intact Neck: Present: neck supple Respiratory: Decreased Breath Sounds Heart: regular, S1S2 Gastrointestinal: Present: normoactive bowel sounds Integumentary: warm and dry Neurologic: alert and oriented x3 Musculoskeletal: Present: other (No edema) Results - Lab Results 02/24/19 06:42 02/24/19 06:42 Most recent lab results Calcium 7.9 mg/dL (8.4-10.2) L 02/24/19 06:42 Magnesium 1.80 mg/dL (1.7-2.3) 02/23/19 16:34 Assessment and Plan Acute Renal Failure likely secondary to Volume Depletion from Diarrhea: -Renal labs reviewed. Serum creatinine trend down to 1.2 today, from 1.7 yesterday -Continue on IV hydration with NS -Obtain renal ultrasound -Obtain urine lytes -Avoid nephrotoxic agents -Monitor I/O's -Monitor renal function HIV: -Was recently started on Biktarvy outpatiently -ID consulted Diarrhea: -Possible medication induced -Ruling out C/Diff -As per primary team
--- NOTE | 2019-02-24 14:49 | Progress Note ---
Assessment and Plan Assessment and plan: Acute kidney injury due to vasomotor Nephropathy Acute Gastroenteritis, viral vs HIV related Urinary Tract infection HIV infection Hyponatremia Lactic acidosis Plan Admitted to [facility] Started IV fluids, follow stool cultures, check C. difficile Consult ID, the Levaquin, DVT prophylaxis History Interval history: Abd pain, nausea , vomiting, diarrhea Hospitalist Physical - Physical exam Narrative exam: Gen: Not in acute distress, lying in bed, HEENT: Normocephalic, atraumatic Neck: supple, no JVD Heart: S1 and S2 reg, no murmurs, rubs or gallop Lungs: Clear to auscultation, no rhonchi, no wheeze Abd: soft, mild tender, no rebound tenderness, non distended, normal BS, Ext: No edema, no clubbing, no cyanosis Neuro: Awake, alert, oriented X 3, no focal neurological signs - Constitutional Vitals: Temp Pulse Resp BP Pulse Ox 98.5 F 122 H 18 95/59 100 02/24/19 11:34 02/24/19 11:34 02/24/19 11:34 02/24/19 11:34 02/24/19 11:34 Results - Labs CBC & Chem 7: 02/24/19 06:42 02/24/19 06:42 Labs: Laboratory Last Values WBC 5.0 K/mm3 (4.5-11.0) 02/24/19 06:42 RBC 4.60 M/mm3 (3.65-5.03) 02/24/19 06:42 Hgb 12.7 gm/dl (11.8-15.2) D 02/24/19 06:42 Hct 38.3 % (35.5-45.6) D 02/24/19 06:42 MCV 83 fl (84-94) L 02/24/19 06:42 MCH 28 pg (28-32) 02/24/19 06:42 MCHC 33 % (32-34) 02/24/19 06:42 RDW 14.7 % (13.2-15.2) 02/24/19 06:42 Plt Count 165 K/mm3 (140-440) 02/24/19 06:42 [place] % (Auto) Biologist Aide 02/24/19 06:42 Add Manual Diff Complete 02/24/19 06:42 Total Counted 100 02/24/19 06:42 Seg Neuts % (Manual) 61.0 % (40.0-70.0) 02/24/19 06:42 Band Neutrophils % 1.0 % 02/24/19 06:42 Lymphocytes % (Manual) 10.0 % (13.4-35.0) L 02/24/19 06:42 Reactive Lymphs % (Man) 1.0 % 02/24/19 06:42 Monocytes % (Manual) 26.0 % (0.0-7.3) H 02/24/19 06:42 Eosinophils % (Manual) 1.0 % (0.0-4.3) 02/24/19 06:42 Basophils % (Manual) 0 % (0.0-1.8) 02/24/19 06:42 Metamyelocytes % 0 % 02/24/19 06:42 Myelocytes % 0 % 02/24/19 06:42 Promyelocytes % 0 % 02/24/19 06:42 Blast Cells % 0 % 02/24/19 06:42 Nucleated RBC % Not Reportable 02/24/19 06:42 Seg Neutrophils # Man 3.1 K/mm3 (1.8-7.7) 02/24/19 06:42 Band Neutrophils # 0.1 K/mm3 02/24/19 06:42 Lymphocytes # (Manual) 0.5 K/mm3 (1.2-5.4) L 02/24/19 06:42 Abs React Lymphs (Man) 0.1 K/mm3 02/24/19 06:42 Monocytes # (Manual) 1.3 K/mm3 (0.0-0.8) H 02/24/19 06:42 Eosinophils # (Manual) 0.1 K/mm3 (0.0-0.4) 02/24/19 06:42 Basophils # (Manual) 0.0 K/mm3 (0.0-0.1) 02/24/19 06:42 Metamyelocytes # 0.0 K/mm3 02/24/19 06:42 Myelocytes # 0.0 K/mm3 02/24/19 06:42 Promyelocytes # 0.0 K/mm3 02/24/19 06:42 Blast Cells # 0.0 K/mm3 02/24/19 06:42 WBC Morphology Not Reportable 02/24/19 06:42 Hypersegmented Neuts Not Reportable 02/24/19 06:42 Hyposegmented Neuts Not Reportable 02/24/19 06:42 Hypogranular Neuts Not Reportable 02/24/19 06:42 Smudge Cells Not Reportable 02/24/19 06:42 Toxic Granulation Not Reportable 02/24/19 06:42 Toxic Vacuolation Not Reportable 02/24/19 06:42 Dohle Bodies 2+ 02/24/19 06:42 Pelger-Huet Anomaly Not Reportable 02/24/19 06:42 Gavino Rods Not Reportable 02/24/19 06:42 Platelet Estimate Consistent w auto 02/24/19 06:42 Clumped Platelets Not Reportable 02/24/19 06:42 Plt Clumps, EDTA Not Reportable 02/24/19 06:42 Large Platelets Not Reportable 02/24/19 06:42 Giant Platelets Not Reportable 02/24/19 06:42 Platelet Satelliting Not Reportable 02/24/19 06:42 Plt Morphology Comment Not Reportable 02/24/19 06:42 RBC Morphology Not Reportable 02/24/19 06:42 Dimorphic RBCs Not Reportable 02/24/19 06:42 Polychromasia Not Reportable 02/24/19 06:42 Hypochromasia Not Reportable 02/24/19 06:42 Poikilocytosis Few 02/24/19 06:42 Anisocytosis Few 02/24/19 06:42 Microcytosis Not Reportable 02/24/19 06:42 Macrocytosis Not Reportable 02/24/19 06:42 Spherocytes Not Reportable 02/24/19 06:42 Pappenheimer Bodies Not Reportable 02/24/19 06:42 Sickle Cells Not Reportable 02/24/19 06:42 Target Cells Rare 02/24/19 06:42 Tear Drop Cells Not Reportable 02/24/19 06:42 Ovalocytes Rare 02/24/19 06:42 Helmet Cells Not Reportable 02/24/19 06:42 [place] Bodies Not Reportable 02/24/19 06:42 [place] Rings Not Reportable 02/24/19 06:42 [place] Cells Not Reportable 02/24/19 06:42 Bite Cells Not Reportable 02/24/19 06:42 Crenated Cell Not Reportable 02/24/19 06:42 Elliptocytes Not Reportable 02/24/19 06:42 Acanthocytes (Spur) Not Reportable 02/24/19 06:42 Rouleaux Not Reportable 02/24/19 06:42 Hemoglobin C Crystals Not Reportable 02/24/19 06:42 Schistocytes Not Reportable 02/24/19 06:42 Malaria parasites Not Reportable 02/24/19 06:42 Erasto Bodies Not Reportable 02/24/19 06:42 Hem Pathologist Commnt No 02/24/19 06:42 PT 12.7 Sec. (12.2-14.9) 02/23/19 14:24 INR 0.98 (0.87-1.13) 02/23/19 14:24 VBG pH 7.383 (7.320-7.420) 02/23/19 14:24 Sodium 131 mmol/L (137-145) L 02/24/19 06:42 Potassium 4.0 mmol/L (3.6-5.0) 02/24/19 06:42 Chloride 96.8 mmol/L (98-107) L 02/24/19 06:42 Carbon Dioxide 18 mmol/L (22-30) L 02/24/19 06:42 Anion Gap 20 mmol/L 02/24/19 06:42 BUN 21 mg/dL (9-20) H 02/24/19 06:42 Creatinine 1.2 mg/dL (0.8-1.5) 02/24/19 06:42 Estimated GFR > 60 ml/min 02/24/19 06:42 BUN/Creatinine Ratio 18 % 02/24/19 06:42 Glucose 100 mg/dL (75-100) 02/24/19 06:42 Lactic Acid 1.90 mmol/L (0.7-2.0) 02/23/19 23:17 Calcium 7.9 mg/dL (8.4-10.2) L 02/24/19 06:42 Magnesium 1.80 mg/dL (1.7-2.3) 02/23/19 16:34 Total Bilirubin 1.00 mg/dL (0.1-1.2) 02/23/19 14:24 AST 52 units/L (5-40) H 02/23/19 14:24 ALT 17 units/L (7-56) 02/23/19 14:24 Alkaline Phosphatase 42 units/L (35-129) 02/23/19 14:24 Total Creatine Kinase 191 units/L (55-170) H 02/23/19 16:34 Total Protein 7.5 g/dL (6.3-8.2) 02/23/19 14:24 Albumin 3.2 g/dL (3.9-5) L 02/23/19 14:24 Albumin/Globulin Ratio 0.7 % 02/23/19 14:24 Lipase 7 units/L (13-60) L 02/23/19 16:21 Urine Color Yellow (Yellow) 02/23/19 Unknown Urine Turbidity Clear (Clear) 02/23/19 Unknown Urine pH 6.0 (5.0-7.0) 02/23/19 Unknown Ur Specific Protivin 1.016 (1.003-1.030) 02/23/19 Unknown Urine Protein 30 mg/dl mg/dL (Negative) 02/23/19 Unknown Urine Glucose (UA) Neg mg/dL (Negative) 02/23/19 Unknown Urine Ketones Tr mg/dL (Negative) 02/23/19 Unknown Urine Blood Mod (Negative) 02/23/19 Unknown Urine Nitrite Neg (Negative) 02/23/19 Unknown Urine Bilirubin Neg (Negative) 02/23/19 Unknown Urine Urobilinogen < 2.0 mg/dL (<2.0) 02/23/19 Unknown Ur Leukocyte Esterase Tr (Negative) 02/23/19 Unknown Urine WBC (Auto) 10.0 /HPF (0.0-6.0) H 02/23/19 Unknown Urine RBC (Auto) 5.0 /HPF (0.0-6.0) 02/23/19 Unknown Influenza A (Rapid) Negative (Negative) 02/23/19 16:16 Influenza B (Rapid) Negative (Negative) 02/23/19 16:16 Active Medications - Current Medications Current Medications: Generic Name Dose Route Start Last Admin Trade Name Freq PRN Reason Stop Dose Admin Acetaminophen 650 mg 02/23/19 21:51 Tylenol PO Q4H PRN Pain MILD(1-3)/Fever >100.5/GOMEZ Enoxaparin Sodium 40 mg 02/25/19 10:00 Lovenox SUB-Q QDAY@1000 BETH Sodium Chloride 1,000 mls @ 150 mls/hr 02/23/19 22:00 02/24/19 13:46 Nacl 0.9% 1000 Ml IV 150 mls/hr DIRECT BETH Administration Levofloxacin/Dextrose 750 mg in 150 mls @ 100 mls/hr 02/24/19 22:00 Levaquin 750mg/150ml IV Q24H [facility] Protocol Miscellaneous Medication 1 each 02/24/19 10:00 Bictegrav/Emtricit/Tenofov Ala PO QDAY [facility] Morphine Sulfate 2 mg 02/23/19 21:51 02/24/19 00:30 Morphine IV 2 mg Q4H PRN Administration Pain, Moderate (4-6) Ondansetron HCl 4 mg 02/23/19 21:51 Zofran IV Q4H PRN Nausea And Vomiting Sodium Chloride 10 ml 02/23/19 22:00 02/24/19 10:49 Sodium Chloride Flush Syringe 10 Ml IV 10 ml BID BETH Administration Sodium Chloride 10 ml 02/23/19 20:54 02/24/19 00:50 Sodium Chloride Flush Syringe 10 Ml IV 10 ml PRN PRN Administration LINE FLUSH
--- NOTE | 2019-02-24 16:24 | Consultation ---
History of Present Illness - Reason for Consult Consult date: 02/24/19 Diarrhea, HIV Requesting physician: JOSH NEGRETE - History of Present Illness The patient is a 33-year-old male with HIV who recently started taking Biktarvy about 1 week ago came to the ER with complaints of diarrhea, upto 10-15 BMs/day for the last 4-5 days. He previously used to be on Triumeq, took it for about a year and was undetectable however then stopped taking it for about 7 months. He follows up for HIV at [facility]. Got IV fluids in ER for tachycardia and lactate elevation. Denies any urinary burning. Denies any nausea or vomiting. Denies fever or chills. Feeling better today, only had 2 bowel movements today. Drinks bottled water and filtered city water. Denies any well water use. Denies any sick contacts. Denies eating outside meals. Review of Systems: General: no fevers,chills or rigors HEENT: no new visual disturbance Respiratory: No cough, sputum, hemoptysis or shortness of breath Cardiovascular: No chest pain, syncope Gastrointestinal: No nausea, vomiting. diarrhea slowing down Genitourinary: No dysuria or hematuria Musculoskeletal: No new or worsening neck pain or back pain Neurologic: No headaches, seizures Hematologic: No easy bruising or bleeding Endocrine: No night sweats or acute weight loss Skin: negative for rash, jaundice Psychiatric: No suicidal or homicidal ideation Past History Past Medical History: HIV/AIDS Past Surgical History: No surgical history Social history: other (HIV) Family history: no significant family history Medications and Allergies Allergies Allergy/AdvReac Type Severity Reaction Status Date / Time No Known Allergies Allergy Unverified 02/23/19 14:01 Home Medications Medication Instructions Recorded Confirmed Last Taken Type Bictegrav/Emtricit/Tenofov Ala 1 each PO QDAY 02/23/19 02/23/19 02/19/19 History [Biktarvy 50-200-25 mg (Nf)] Active Meds: Active Medications Acetaminophen (Tylenol) 650 mg PO Q4H PRN PRN Reason: Pain MILD(1-3)/Fever >100.5/GOMEZ Emtricitabine 200 mg/Tenofovir Disoproxil Fumarate 300 mg 0 mg PO QDAY BETH Enoxaparin Sodium (Lovenox) 40 mg SUB-Q QDAY@1000 BETH Sodium Chloride (Nacl 0.9% 1000 Ml) 1,000 mls @ 150 mls/hr IV DIRECT BETH Last Admin: 02/24/19 13:46 Dose: 150 mls/hr Documented by: Miscellaneous Medication (Bictegrav/Emtricit/Tenofov Ala) 1 each PO QDAY BETH Morphine Sulfate (Morphine) 2 mg IV Q4H PRN PRN Reason: Pain, Moderate (4-6) Last Admin: 02/24/19 00:30 Dose: 2 mg Documented by: Ondansetron HCl (Zofran) 4 mg IV Q4H PRN PRN Reason: Nausea And Vomiting Sodium Chloride (Sodium Chloride Flush Syringe 10 Ml) 10 ml IV BID BETH Last Admin: 02/24/19 10:49 Dose: 10 ml Documented by: Sodium Chloride (Sodium Chloride Flush Syringe 10 Ml) 10 ml IV PRN PRN PRN Reason: LINE FLUSH Last Admin: 02/24/19 00:50 Dose: 10 ml Documented by: Physical Examination - Physical Exam Narrative exam: Physical Exam: Constitutional: Alert, cooperative. No acute distress Head, Ears, Nose: Normocephalic, atraumatic. External ears, nose normal Eyes: Conjunctivae/corneas clear. No icterus. No ptosis. Neck: Supple, no meningeal signs Oral: dentition fair, no thrush Cardiovascular: S1, S2 normal. Respiratory: Good air entry, clear to auscultation bilaterally GI: Soft, mild diffuse tenderness; bowel sounds normal. No peritoneal signs Musculoskeletal: No pedal edema, no cyanosis. Skin: No rash or abscess Hem/Lymphatic: No palpable cervical or supraclavicular nodes. No lymphangitis Psych: Mood ok. Affect normal Neurological: Awake, alert, oriented. No gross abnormality - Constitutional Vitals: Vital Signs Temp Pulse Resp BP Pulse Ox 98.5 F 122 H 18 95/59 100 02/24/19 11:34 02/24/19 11:34 02/24/19 11:34 02/24/19 11:34 02/24/19 11:34 Temperature -Last 24 Hours Temperature 98.5 F Temperature 98.1 F Temperature 98.0 F Temperature 98.1 F Temperature 99.7 F Temperature 98 F Results - Labs CBC & Chem 7: 02/24/19 06:42 02/24/19 06:42 Labs: Abnormal lab results 02/23/19 02/23/19 02/23/19 Range/Units 14:24 16:21 16:21 MCV (84-94) fl Lymphocytes % (Manual) (13.4-35.0) % Monocytes % (Manual) (0.0-7.3) % Lymphocytes # (Manual) (1.2-5.4) K/mm3 Monocytes # (Manual) (0.0-0.8) K/mm3 Sodium 129 L (137-145) mmol/L Chloride 92.0 L (98-107) mmol/L Carbon Dioxide 20 L (22-30) mmol/L BUN 47 H (9-20) mg/dL Creatinine 1.7 H (0.8-1.5) mg/dL Glucose 113 H (75-100) mg/dL Lactic Acid 4.30 H* (0.7-2.0) mmol/L Calcium (8.4-10.2) mg/dL AST 52 H (5-40) units/L Total Creatine Kinase (55-170) units/L Albumin 3.2 L (3.9-5) g/dL Lipase 7 L (13-60) units/L Urine WBC (Auto) (0.0-6.0) /HPF 02/23/19 02/23/19 02/23/19 Range/Units 16:34 17:22 19:55 MCV (84-94) fl Lymphocytes % (Manual) (13.4-35.0) % Monocytes % (Manual) (0.0-7.3) % Lymphocytes # (Manual) (1.2-5.4) K/mm3 Monocytes # (Manual) (0.0-0.8) K/mm3 Sodium (137-145) mmol/L Chloride (98-107) mmol/L Carbon Dioxide (22-30) mmol/L BUN (9-20) mg/dL Creatinine (0.8-1.5) mg/dL Glucose (75-100) mg/dL Lactic Acid 4.60 H* 3.90 H* (0.7-2.0) mmol/L Calcium (8.4-10.2) mg/dL AST (5-40) units/L Total Creatine Kinase 191 H (55-170) units/L Albumin (3.9-5) g/dL Lipase (13-60) units/L Urine WBC (Auto) (0.0-6.0) /HPF 02/23/19 02/23/19 02/23/19 Range/Units 19:55 20:35 Unknown MCV (84-94) fl Lymphocytes % (Manual) (13.4-35.0) % Monocytes % (Manual) (0.0-7.3) % Lymphocytes # (Manual) (1.2-5.4) K/mm3 Monocytes # (Manual) (0.0-0.8) K/mm3 Sodium (137-145) mmol/L Chloride (98-107) mmol/L Carbon Dioxide (22-30) mmol/L BUN (9-20) mg/dL Creatinine (0.8-1.5) mg/dL Glucose (75-100) mg/dL Lactic Acid 4.00 H* 4.20 H* (0.7-2.0) mmol/L Calcium (8.4-10.2) mg/dL AST (5-40) units/L Total Creatine Kinase (55-170) units/L Albumin (3.9-5) g/dL Lipase (13-60) units/L Urine WBC (Auto) 10.0 H (0.0-6.0) /HPF 02/24/19 02/24/19 Range/Units 06:42 06:42 MCV 83 L (84-94) fl Lymphocytes % (Manual) 10.0 L (13.4-35.0) % Monocytes % (Manual) 26.0 H (0.0-7.3) % Lymphocytes # (Manual) 0.5 L (1.2-5.4) K/mm3 Monocytes # (Manual) 1.3 H (0.0-0.8) K/mm3 Sodium 131 L (137-145) mmol/L Chloride 96.8 L (98-107) mmol/L Carbon Dioxide 18 L (22-30) mmol/L BUN 21 H (9-20) mg/dL Creatinine (0.8-1.5) mg/dL Glucose (75-100) mg/dL Lactic Acid (0.7-2.0) mmol/L Calcium 7.9 L (8.4-10.2) mg/dL AST (5-40) units/L Total Creatine Kinase (55-170) units/L Albumin (3.9-5) g/dL Lipase (13-60) units/L Urine WBC (Auto) (0.0-6.0) /HPF - Imaging and Cardiology CT scan - abdomen: report reviewed, image reviewed (no colitis) Assessment and Plan Cultures: 02/23/2019 blood culture: No growth 02/23/2019 stool cryptosporidium and Giardia: Negative 02/23/2019 urine culture: No growth A/P: 33-year-old male with HIV who recently started taking Biktarvy about 1 week ago came to the ER with complaints of diarrhea: 1) Acute diarrhea: Reactive postoperative negative. Unlikely to be related to Biktarvy. Patient has no fever or chills, no leucocytosis/leukopenia. Low suspicion for disseminated MAC. CT abdomen unremarkable for colitis. Suspect viral etiology. 2) HIV: continue ARVs. 3) DEIDRA: from dehydration. Recs: Levofloxacin discontinued Continue supportive care HIV meds ordered: Truvada plus Tivicay since Biktarvy is non formulary Stool culture and stool for C.diff ordered Once diarrhea better and can tolerate food, OK to discharge from ID standpoint Kip Murphy MD, FACP [facility] ([facility] C: [phone] O: [phone] F: [phone]
[2019-02-24] MEDS ORDERED: EMTRIVA 200 MG, VIREAD 300 MG PO SCH (17:00)
--- NOTE | 2019-02-24 19:36 | Ultrasound Report ---
ULTRASOUND RENAL INDICATION: renal failure COMPARISON: CT abdomen and pelvis 02/23/2019. FINDINGS: RIGHT KIDNEY: Size: 10.8 cm. Echogenicity: Mildly increased. Cortical thickness: Normal. Stones: None. Hydronephrosis: None. Cyst or mass: None. LEFT KIDNEY: Size: 12.5 cm. Echogenicity: Mildly increased. Cortical thickness: Normal. Stones: Several small hyperechoic areas are seen but do not definitely shadow and are not clearly edgar culi. On recent CT only a single tiny calculus is seen in the mid kidney.. Hydronephrosis: None. Cyst or mass: None. Urinary Bladder: No significant abnormality. Free Fluid: None. Additional Findings: None. IMPRESSION: No acute sonographic abnormality of the kidneys Signer Name: Bill Jane MD Signed: 02/24/2019 7:31 PM Workstation Name: [id number]
[2019-02-24] MEDS: EMTRIVA PO SCH (19:49)
[2019-02-24] MEDS: TIVICAY PO SCH (19:49)
[2019-02-24] MEDS: VIREAD PO SCH (19:49)
[2019-02-24] MEDS ORDERED: LEVAQUIN 750MG/150ML 750 MG/150 ML BAG IV SCH (22:00)
[2019-02-25 00:22] LABS: Creatinine,Urine 71.7 mg/dL (0.1-20.0)
[2019-02-25] MEDS: SODIUM CHLORIDE FLUSH SYRINGE 10 ML IV SCH ×3 (05:08→13:15)
[2019-02-25] MEDS: NACL 0.9% 1000 ML 1,000 ML IV SCH ×2 (05:09→11:53)
[2019-02-25 06:57] LABS: BUN/Creatinine Ratio 11; Blood Urea Nitrogen 10 mg/dL (9-20); Calcium 7.8 mg/dL (8.4-10.2); Hemolysis Index 13
[2019-02-25] MEDS ORDERED: ENOXAPARIN SUB-Q SCH (10:00)
[2019-02-25] MEDS: VIREAD PO SCH (10:03)
[2019-02-25] MEDS: TIVICAY PO SCH (10:04)
[2019-02-25] MEDS: EMTRIVA PO SCH (10:04)
--- NOTE | 2019-02-25 11:56 | Progress Note ---
Assessment and Plan Acute Renal Failure likely secondary to Volume Depletion from Diarrhea: -resolved -Avoid nephrotoxic agents -Monitor I/O's -Monitor renal function HIV: -Was recently started on Biktarvy outpatiently -ID consulted Diarrhea: -Possible medication induced -Ruling out C/Diff -As per primary team will sign off, please reconsult if needed Tee Churchill MD [phone] Subjective Date of service: 02/25/19 Principal diagnosis: DEIDRA Interval history: tired but comfortable Objective - Vital Signs Vital signs: Vital Signs - 12hr 02/25/19 02/25/19 02/25/19 00:00 04:26 08:14 Temperature 98.4 F 98.5 F 98.7 F Pulse Rate 93 H 91 H 73 Respiratory 18 18 16 Rate Blood Pressure 90/60 97/61 101/65 O2 Sat by Pulse 100 100 100 Oximetry 02/25/19 08:36 Temperature Pulse Rate 102 H Respiratory Rate Blood Pressure O2 Sat by Pulse Oximetry - General Appearance General appearance: well-developed, well-nourished EENT: ATNC, PERRL, mucous membranes moist Neck: no JVD Respiratory: Present: Clear to Ascultation Cardiology: regular, S1S2 Gastrointestinal: normoactive bowel sounds, no tenderness, no distended Integumentary: no rash, warm and dry Neurologic: no focal deficit, no asterixis, alert and oriented x3 Musculoskeletal: other (no edema in BLE) Psychiatric: mood/affect appropriate, cooperative - Lab 02/24/19 06:42 02/25/19 05:02 Most recent lab results Calcium 7.8 mg/dL (8.4-10.2) L 02/25/19 05:02 Magnesium 1.80 mg/dL (1.7-2.3) 02/23/19 16:34 Urine Creatinine 71.7 mg/dL (0.1-20.0) H 02/24/19 23:52 Urine Sodium 28 mmol/L 02/24/19 23:52 Urine Total Protein 28 mg/dL (5-11.8) H 02/24/19 23:52 Medications & Allergies - Medications Allergies/Adverse Reactions: Allergies No Known Allergies Allergy (Unverified 02/23/19 14:01) Home Medications: Home Medications Medication Instructions Recorded Confirmed Last Taken Type Bictegrav/Emtricit/Tenofov Ala 1 each PO QDAY 02/23/19 02/23/19 02/19/19 History [Biktarvy 50-200-25 mg (Nf)] Active Medications: Generic Name Dose Route Start Last Admin Trade Name Freq PRN Reason Stop Dose Admin Acetaminophen 650 mg 02/23/19 21:51 Tylenol PO Q4H PRN Pain MILD(1-3)/Fever >100.5/GOMEZ Emtricitabine 200 mg 02/24/19 18:00 02/25/19 10:04 Emtriva PO 200 mg QDAY BETH Administration Enoxaparin Sodium 40 mg 02/25/19 10:00 02/25/19 10:03 Lovenox SUB-Q 40 mg QDAY@1000 BETH Administration Sodium Chloride 1,000 mls @ 150 mls/hr 02/23/19 22:00 02/25/19 11:53 Nacl 0.9% 1000 Ml IV 150 mls/hr DIRECT BETH Administration Miscellaneous Medication 1 each 02/24/19 10:00 Bictegrav/Emtricit/Tenofov Ala PO QDAY BETH Morphine Sulfate 2 mg 02/23/19 21:51 02/24/19 00:30 Morphine IV 2 mg Q4H PRN Administration Pain, Moderate (4-6) Ondansetron HCl 4 mg 02/23/19 21:51 Zofran IV Q4H PRN Nausea And Vomiting Pneumococcal Polyvalent Vaccine 0.5 ml 02/26/19 12:00 Pneumovax 23 IM 02/26/19 12:01 .ONCE ONE Sodium Chloride 10 ml 02/23/19 22:00 02/25/19 10:09 Sodium Chloride Flush Syringe 10 Ml IV Not Given BID BETH Sodium Chloride 10 ml 02/23/19 20:54 02/24/19 00:50 Sodium Chloride Flush Syringe 10 Ml IV 10 ml PRN PRN Administration LINE FLUSH Tenofovir Disoproxil Fumarate 300 mg 02/24/19 18:00 02/25/19 10:03 Viread PO 300 mg QDAY BETH Administration
[2019-02-25] MEDS ORDERED: AFLURIA QUAD 2019-2020 (3YR UP) IM ONE (12:00)
[2019-02-25 12:03] VITALS: BP 96/62
[2019-02-25] MEDS: NON-FORMULARY (Bictegrav/Emtricit/Tenofov Ala 1 EACH) PO SCH (13:15)
--- NOTE | 2019-02-25 13:15 | Progress Note ---
Assessment and Plan Cultures: 02/23/2019 blood culture: No growth 02/23/2019 stool cryptosporidium and Giardia: Negative 02/23/2019 urine culture: No growth Stool culture pending, C.difficile negative A/P: 33-year-old male with HIV who recently started taking Biktarvy about 1 week ago came to the ER with complaints of diarrhea: 1) Acute diarrhea: cryptosporidium and Giardia negative. Unlikely to be related to Biktarvy. Patient has no fever or chills, no leucocytosis/leukopenia. Low suspicion for disseminated MAC. CT abdomen unremarkable for colitis. Resolving. 2) HIV: continue ARVs. 3) DEIDRA: from dehydration. Recs: stool culture is pending, C.diff is negative Diarrhea almost resolved, seems to be tolerating his meals. Stable for d/c from ID standpoint Resume Biktarvy upon discharge d/w Dr. Troncoso and patient Kip Murphy MD, [facility], [place] C: [phone] O: [phone] F: [phone] Subjective Date of service: 02/25/19 Principal diagnosis: DEIDRA Interval history: Diarrhea much improved. No abdominal pain. Eating his lunch without issues. No fever. Objective - Exam Narrative Exam: Physical Exam: Constitutional: Alert, cooperative. No acute distress Head, Ears, Nose: Normocephalic, atraumatic. External ears, nose normal Eyes: Conjunctivae/corneas clear. No icterus. No ptosis. Neck: Supple, no meningeal signs Oral: dentition fair, no thrush Cardiovascular: S1, S2 normal. Respiratory: Good air entry, clear to auscultation bilaterally GI: Soft, non tender; bowel sounds normal. No peritoneal signs Musculoskeletal: No pedal edema, no cyanosis. Skin: No rash or abscess Hem/Lymphatic: No palpable cervical or supraclavicular nodes. No lymphangitis Psych: Mood ok. Affect normal Neurological: Awake, alert, oriented. No gross abnormality - Constitutional Vitals: Vital Signs Temp Pulse Resp BP Pulse Ox 98.7 F 97 H 16 96/62 95 02/25/19 08:14 02/25/19 12:01 02/25/19 08:14 02/25/19 12:01 02/25/19 12:01 Temperature -Last 24 Hours Temperature 98.7 F Temperature 98.5 F Temperature 98.4 F Temperature 98.7 F Temperature 97.7 F - Labs CBC & Chem 7: 02/24/19 06:42 02/25/19 05:02 Labs: Abnormal lab results 02/24/19 02/25/19 Range/Units 23:52 05:02 Sodium 135 L (137-145) mmol/L Carbon Dioxide 20 L (22-30) mmol/L Calcium 7.8 L (8.4-10.2) mg/dL Urine Creatinine 71.7 H (0.1-20.0) mg/dL Urine Total Protein 28 H (5-11.8) mg/dL
--- NOTE | 2019-02-25 14:05 | Discharge Summary ---
Providers - Providers Date of Admission: 02/23/19 20:54 Date of discharge: 02/25/19 Attending physician: JOSH MÉNDEZ 02/23/19 16:49 Consult to Physician [CONS] Urgent Comment: Consulting Provider: GREGORY BARON Physician Instructions: Reason For Exam: hiv on haart diarrhea abd pain sirs 02/23/19 20:57 Consult to Physician [CONS] Routine Comment: Consulting Provider: ALFRED URIBE Physician Instructions: Reason For Exam: DEIDRA, hx HIV Primary care physician: APPLE TURNER Hospitalization Condition: Fair Disposition: DC-01 TO HOME OR SELFCARE Exam - Constitutional Vitals: Temp Pulse Resp BP Pulse Ox 98.7 F 97 H 16 96/62 95 02/25/19 08:14 02/25/19 12:01 02/25/19 08:14 02/25/19 12:01 02/25/19 12:01 Plan Activity: advance as tolerated Diet: regular Plan of Treatment: 1.Follow up with PCP or [facility] in 1 week. 2.Follow up with ID Physician as scheduled Follow up with: PRIMARY MD JIM [Primary Care Provider] - 3-5 Days
[2019-02-26] MEDS ORDERED: PNEUMOVAX 23 IM ONE (12:00)
== END 2019-02-25 16:02 | disposition home or self-care (01) | DRG 391 ==
LOC: ED 13:59 → 3A 20:54 → 4A 21:54
PROVIDERS: ADMIT Internal Medicine; ATTEND Internal Medicine
DX: R19.7 Diarrhea, unspecified (principal); N17.0 Acute kidney failure with tubular necrosis; E87.2 Acidosis; N39.0 Urinary tract infection, site not specified; B20 Human immunodeficiency virus [HIV] disease; E87.1 Hypo-osmolality and hyponatremia; F17.210 Nicotine dependence, cigarettes, uncomplicated; E86.0 Dehydration
CPT/HCPCS: 36415; 71045; 74176; 76770; 80048; 80053; 81001; 82140; 82550; 82570; 82805; 83690; 83735; 84156; 84300; 85007; 85025; 85610; 87040; 87045; 87086; 87177; 87400; 87493; 90686; 93005; 93010; 96374; 96375; 96376; G0378; J1650; J1956; J2270; J2405; J3246; J7030; J7040